=== PATIENT | female | born 1930 | race Caucasian/White ===

== ENCOUNTER 2018-02-08 08:02 | Observation (INO) ==
--- NOTE | 2018-02-08 08:52 | ED ---
HPI General Chief complaint: Nausea/Vomiting/Diarrhea Stated complaint: Possible allergic reaction to medication Time Seen by Provider: 02/08/18 08:38 Source: patient and family Mode of arrival: ambulatory Limitations: no limitations History of Present Illness HPI narrative: 87 y/o female presents with nausea and persistent cough after starting Levaquin. She was placed on this after seeing a primary physician and having rattling in her chest. The patient feels like the nausea and dry heaves or an allergic reaction. She denies any fever or other concurrent complaints. She states her only symptoms were a cough for 2 weeks when she was given the Levaquin. She was given an inhaler but she does not want to use that. She is currently with her daughter who just started taking care of her as her 3 other daughters alternate taking care of her. complaint: nausea Onset (ago): week(s) Location: chest Radiation: non-radiation Severity: mild Pain Consistency: intermittent Relieving factors: none Associated symptoms: denies other symptoms Related Data Home Medications Medication Instructions Recorded Confirmed allopurinol 100 mg PO DAILY 02/08/18 02/08/18 aspirin [Aspir-81] 81 mg PO DAILY 02/08/18 02/08/18 carvedilol 6.25 mg PO BID 02/08/18 02/08/18 furosemide 40 mg PO DAILY 02/08/18 02/08/18 gabapentin 300 mg PO TID 02/08/18 02/08/18 meclizine 25 mg PO DAILY PRN 02/08/18 02/08/18 omeprazole 20 mg PO DAILY 02/08/18 02/08/18 quinapril [Accupril] 5 mg PO DAILY 02/08/18 02/08/18 Allergies Allergy/AdvReac Type Severity Reaction Status Date / Time azithromycin Allergy Vomiting Verified 02/08/18 08:39 prednisone Allergy Anxiety Verified 02/08/18 08:39 Sulfa (Sulfonamide Allergy Vomiting Verified 02/08/18 08:39 Antibiotics) Review of Systems ROS: all other systems reviewed are negative [facility] [place] Medical History Medical History CHF (congestive heart failure) (Acute) FH: cholecystectomy (Acute) GERD (gastroesophageal reflux disease) (Acute) Gout (Acute) Vertigo (Acute) Surgical History Surgical History Hx of CABG (Acute) Social History Social History Substance History: No History of Abuse Second Hand Smoke Exposure: No Smoking Status: Former smoker How Often Do You Have a Drink Containing Alcohol: Monthly or less Recent Travel in [facility] within the Last 8 Weeks: No Recent Out of Country Travel within the Last 8 Weeks: No Immunization History Tetanus Immunization: <5 Years Hx Influenza Vaccine This Season: Yes Exam Narrative Exam Narrative: GENERAL: 87 y/o female in no apparent distress SKIN: Focused skin assessment warm/dry. HEAD: Atraumatic. Normocephalic. EYES: Pupils equal and round. No scleral icterus. No injection or drainage. ENT: No nasal bleeding or discharge. Mucous membranes pink and moist. NECK: Trachea midline. No JVD. CARDIOVASCULAR: Regular rate and rhythm. RESPIRATORY: No accessory muscle use. Clear to auscultation. Breath sounds equal bilaterally. GASTROINTESTINAL: Abdomen soft, non-tender, nondistended. MUSCULOSKELETAL: No obvious deformities. No clubbing. No cyanosis. NEUROLOGICAL: Awake. Motor grossly within normal limits. Normal speech. Course Reevaluation(s) Reevaluation #1: patient updated and agrees to admit, given lasix Initial Documented Vital Signs Temperature 98.4 F 02/08/18 08:14 Pulse Rate 96 H 02/08/18 08:14 Respiratory Rate 16 02/08/18 08:14 Blood Pressure 160/95 H 02/08/18 08:14 Pulse Oximetry 94 L 02/08/18 08:14 Last Documented Vital Signs Temperature 98.4 F 02/08/18 08:14 Pulse Rate 96 H 02/08/18 08:14 Respiratory Rate 16 02/08/18 08:14 Blood Pressure 160/95 H 02/08/18 08:14 Pulse Oximetry 96 02/08/18 08:43 Medical Decision Making MDM Narrative Medical decision making narrative: Patient with 2 week history of cough placed on Levaquin now with nausea. Patient with extensive cardiac history. Will check labs, imaging and reevaluate Medical Screen Exam Complete: Yes Emergency Medical Condition: Yes Differential Diagnosis Differential Diagnosis: pneumonia, chf, acute renal failure, electrolyte... Lab Data Lab results reviewed: Yes I reviewed the patient's lab results. Result diagrams: 02/08/18 08:44 02/08/18 08:44 Lab Results 02/08/18 02/08/18 02/08/18 Range/Units 08:31 08:44 08:44 WBC 7.0 (4.0-11.0) th/mm3 RBC 4.31 (4.00-5.30) mil/mm3 Hgb 13.9 (11.6-15.3) gm/dL Hct 41.9 (35.0-46.0) % MCV 97.1 (80.0-100.0) fL MCH 32.2 (27.0-34.0) pg MCHC 33.2 (32.0-36.0) % RDW 14.7 (11.6-17.2) % Plt Count 253 (150-450) th/mm3 MPV 8.1 (7.0-11.0) fL Neut % (Auto) 72.4 H (16.0-70.0) % Lymph % (Auto) 22.7 (9.0-44.0) % [place] % (Auto) 3.9 (0.0-8.0) % Eos % (Auto) 0.5 (0.0-4.0) % Baso % (Auto) 0.5 (0.0-2.0) % Neut # (Auto) 5.1 (1.8-7.7) th/mm3 Lymph # (Auto) 1.6 (1.0-4.8) th/mm3 [place] # (Auto) 0.3 (0.0-0.9) th/mm3 Eos # (Auto) 0.0 (0.0-0.4) th/mm3 Baso # (Auto) 0.0 (0.0-0.2) th/mm3 WBC Differential . Differential Comment Auto diff final PT 12.0 H (9.8-11.6) sec INR 1.2 Ratio APTT 24.2 L (24.3-30.1) sec Sodium (136-145) meq/L Potassium (3.5-5.1) meq/L Chloride (98-107) meq/L Carbon Dioxide (21.0-32.0) meq/L Anion Gap (5-15) meq/L BUN (7-18) mg/dL Creatinine (0.50-1.00) mg/dL Estimated GFR (>89) mL/min Random Glucose (74-106) mg/dL Lactic Acid 2.5 H (0.4-2.0) mmol/L Calcium (8.5-10.1) mg/dL Magnesium (1.5-2.5) mg/dL Total Bilirubin (0.2-1.0) mg/dL AST (15-37) U/L ALT (10-53) U/L Alkaline Phosphatase (45-117) U/L Total Creatine Kinase (26-192) U/L Troponin I (0.02-0.05) ng/mL B-Natriuretic Peptide (0-100) pg/mL Total Protein (6.4-8.2) g/dL Albumin (3.4-5.0) g/dL 02/08/18 02/08/18 Range/Units 08:44 08:44 WBC (4.0-11.0) th/mm3 RBC (4.00-5.30) mil/mm3 Hgb (11.6-15.3) gm/dL Hct (35.0-46.0) % MCV (80.0-100.0) fL MCH (27.0-34.0) pg MCHC (32.0-36.0) % RDW (11.6-17.2) % Plt Count (150-450) th/mm3 MPV (7.0-11.0) fL Neut % (Auto) (16.0-70.0) % Lymph % (Auto) (9.0-44.0) % [place] % (Auto) (0.0-8.0) % Eos % (Auto) (0.0-4.0) % Baso % (Auto) (0.0-2.0) % Neut # (Auto) (1.8-7.7) th/mm3 Lymph # (Auto) (1.0-4.8) th/mm3 [place] # (Auto) (0.0-0.9) th/mm3 Eos # (Auto) (0.0-0.4) th/mm3 Baso # (Auto) (0.0-0.2) th/mm3 WBC Differential Differential Comment PT (9.8-11.6) sec INR Ratio APTT (24.3-30.1) sec Sodium 134 L (136-145) meq/L Potassium 4.7 (3.5-5.1) meq/L Chloride 101 (98-107) meq/L Carbon Dioxide 21.4 (21.0-32.0) meq/L Anion Gap 12 (5-15) meq/L BUN 13 (7-18) mg/dL Creatinine 1.18 H (0.50-1.00) mg/dL Estimated GFR 43 L (>89) mL/min Random Glucose 169 H (74-106) mg/dL Lactic Acid (0.4-2.0) mmol/L Calcium 9.3 (8.5-10.1) mg/dL Magnesium 2.0 (1.5-2.5) mg/dL Total Bilirubin 0.8 (0.2-1.0) mg/dL AST 28 (15-37) U/L ALT 23 (10-53) U/L Alkaline Phosphatase 84 (45-117) U/L Total Creatine Kinase 58 (26-192) U/L Troponin I Less than 0.02 L (0.02-0.05) ng/mL B-Natriuretic Peptide 1136 H (0-100) pg/mL Total Protein 7.8 (6.4-8.2) g/dL Albumin 4.0 (3.4-5.0) g/dL Imaging Data Attestation: I personally reviewed and interpreted this imaging study as follows : Radiologist's impression: Chest X-Ray 02/08/18 08:42 CONCLUSION: Cardiomegaly and findings of congestive heart failure. Discharge Plan Discharge Disposition Patient Disposition: 30 Still Patient Discharge Condition Condition: Stable Discharge Details Diagnosis: Acute exacerbation of CHF (congestive heart failure) Physicians Team ED Provider: Adelia Sharp Rxs /Orders / Referrals /Forms Prescriptions: No Action furosemide 40 mg Tablet 40 mg PO DAILY RF: 0 carvedilol 6.25 mg Tablet 6.25 mg PO BID RF: 0 allopurinol 100 mg Tablet 100 mg PO DAILY RF: 0 aspirin [Aspir-81] 81 mg Tablet,Delayed Release (Dr/Ec) 81 mg PO DAILY RF: 0 meclizine 25 mg Tablet 25 mg PO DAILY PRN (Reason: Dizziness) RF: 0 quinapril [Accupril] 5 mg Tablet 5 mg PO DAILY RF: 0 gabapentin 300 mg Capsule 300 mg PO TID RF: 0 omeprazole 20 mg Capsule,Delayed Release(Dr/Ec) 20 mg PO DAILY RF: 0 Status ED Status: Admitted Observation Patient
[2018-02-08 09:04] LABS: Baso % (Auto) 0.5 % (0.0-2.0); Eos % (Auto) 0.5 % (0.0-4.0); Hematocrit 41.9 % (35.0-46.0); Hemoglobin 13.9 gm/dL (11.6-15.3); Lymph # (Auto) 1.6 th/mm3 (1.0-4.8); Lymph % (Auto) 22.7 % (9.0-44.0); Mean Corpuscular HGB Conc 33.2 % (32.0-36.0); Mean Corpuscular Hemoglobin 32.2 pg (27.0-34.0); Mean Corpuscular Volume 97.1 fL (80.0-100.0); Mean Platelet Volume 8.1 fL (7.0-11.0); Mono # (Auto) 0.3 th/mm3 (0.0-0.9); Mono % (Auto) 3.9 % (0.0-8.0); Neut # (Auto) 5.1 th/mm3 (1.8-7.7); Neut % (Auto) 72.4 % (16.0-70.0); Platelet Count 253 th/mm3 (150-450); Red Blood Count 4.31 mil/mm3 (4.00-5.30); Red Cell Distribution Width 14.7 % (11.6-17.2)
[2018-02-08 09:11] LABS: Activated Partial Thrombo Time 24.2 sec (24.3-30.1); INR 1.2 Ratio
[2018-02-08 09:23] LABS: Anion Gap 12 meq/L (5-15); Aspartate Aminotransferase 28 U/L (15-37); Blood Urea Nitrogen 13 mg/dL (7-18); Calcium 9.3 mg/dL (8.5-10.1); Carbon Dioxide 21.4 meq/L (21.0-32.0); Chloride 101 meq/L (98-107); Glomerular Filtration Rate 43 mL/min (>89); Glucose,Random 169 mg/dL (74-106); Potassium 4.7 meq/L (3.5-5.1); Sodium 134 meq/L (136-145)
[2018-02-08 09:24] LABS: Alanine Aminotransferase 23 U/L (10-53)
--- NOTE | 2018-02-08 09:27 | XR ---
EXAM DATE: 02/08/2018 9:09 AM EDT AGE/SEX: 87 years / Female INDICATIONS: Nausea, vomiting, weakness. CLINICAL DATA: This is the patient's initial encounter. Patient reports that signs and symptoms have been present for 1 day and indicates a pain score of 3/10. MEDICAL/SURGICAL HISTORY: Cardiovascular disease. CABG. COMPARISON: No prior exams available for comparison. FINDINGS: The cardiac silhouette is enlarged in transverse diameter. Median sternotomy wires are present. There is prominence of the aortic knob is with calcification characteristic of atherosclerotic vascular di sease. There are findings of congestive heart failure with interstitial and alveolar opacity bilatera lly. CONCLUSION: Cardiomegaly and findings of congestive heart failure. Electronically signed by: Stone Rucker MD 02/08/2018 9:26 AM EDT
[2018-02-08 09:28] LABS: Alkaline Phosphatase 84 U/L (45-117); Total Protein 7.8 g/dL (6.4-8.2)
[2018-02-08 09:47] LABS: Creatine Kinase 58 U/L (26-192)
[2018-02-08] MEDS ORDERED: Acetaminophen 325 MG Tablet PO PRN (10:25)
[2018-02-08] MEDS ORDERED: Carvedilol 6.25 MG Tablet PO ONE (10:51)
--- NOTE | 2018-02-08 11:09 | P.HP ---
History of Present Illness Primary Care Physician: Gretta Hernandez History of Present Illness: 7-year-old female with a history of CHF and atrial fibrillation who presents with CHF exacerbation. Approximately 3 weeks ago she had some work done at her house which resulted in andres air, this led to a reactive cough that persisted. When she went to urgent care she was diagnosed with viral upper respiratory infection and given instructions to treat symptomatically. This persisted and she followed up with her primary care physician approximately 4 days ago and was started on Levaquin po due to crackles in bases. She had onset of nausea began yesterday and persisting until today. She came to the ER due to nausea and vomiting but was found to have signs of CHF exacerbation on chest x-ray as well as elevated BNP. Her white blood cell count is normal her temperature is normal, no evidence of pneumonia on chest x-ray. She has a history of atrial fibrillation, but denies any chest pain or change in her heart rhythm impaired to her baseline. She has a history of shingles and postherpetic neuralgia, takes gabapentin, no new rashes, no wounds. Review of Systems All other systems reviewed negative except as stated in HPI PMFSH - History History Provided By: Patient - Medical History Medical History: Medical History (Last Updated 02/08/18 @ 10:44 by Mckenzie Irwin) Afib CHF (congestive heart failure) COPD (chronic obstructive pulmonary disease) FH: cholecystectomy GERD (gastroesophageal reflux disease) Gout Vertigo - Surgical History Surgical History: Surgical History (Last Reviewed 02/08/18 @ 08:54 by Adelia Sharp MD) Hx of CABG - Family History Family History: Family History (Last Updated 02/08/18 @ 11:04 by Jamal Fuchs MD) Other Hypertension - Tobacco History Second Hand Smoke Exposure: No Tobacco Use In Past 30 Days: No Smoking Status: Former smoker - Alcohol History How Often Do You Have a Drink Containing Alcohol: Monthly or less - Substance Use History Substance History: No History of Abuse - Travel History Recent Travel in the [place] Within the Last 8 Weeks: No Recent Travel Out of the Country Within the Last 8 Weeks: No - Immunization History Tetanus Immunization: <5 Years Hx Influenza Vaccine This Season: Yes Medications and Allergies Active Medications: Active Medications Acetaminophen (Tylenol) 650 mg PO Q4H PRN PRN Reason: Temp > 100.4 Al Hydroxide/Mg Hydroxide (Milk Of Magnesia Liq) 30 ml PO Q12H PRN PRN Reason: Mild Constipation Aspirin (Ecotrin) 81 mg PO DAILY [facility] Carvedilol (Coreg) 6.25 mg PO BID [facility] Enoxaparin Sodium (Lovenox Inj) 40 mg SQ Q24H [facility] Furosemide (Lasix Inj) 40 mg IV.PUSH BID@0900,1800 [facility] Gabapentin (Neurontin) 300 mg PO TID [facility] Meclizine HCl (Antivert) 25 mg PO DAILY PRN PRN Reason: Dizziness Non-Formulary Medication (Quinapril [Accupril]) 5 mg PO DAILY [facility] Ondansetron HCl (Zofran Inj) 4 mg IV.PUSH Q6H PRN PRN Reason: NAUSEA OR VOMITING Pantoprazole Sodium (Protonix) 20 mg PO DAILY [facility] Allergies Allergy/AdvReac Type Severity Reaction Status Date / Time azithromycin Allergy Vomiting Verified 02/08/18 08:39 prednisone Allergy Anxiety Verified 02/08/18 08:39 Sulfa (Sulfonamide Allergy Vomiting Verified 02/08/18 08:39 Antibiotics) Home Medications Medication Instructions Recorded Confirmed Type allopurinol 100 mg PO DAILY 02/08/18 02/08/18 History aspirin [Aspir-81] 81 mg PO DAILY 02/08/18 02/08/18 History carvedilol 6.25 mg PO BID 02/08/18 02/08/18 History furosemide 40 mg PO DAILY 02/08/18 02/08/18 History gabapentin 300 mg PO TID 02/08/18 02/08/18 History meclizine 25 mg PO DAILY PRN 02/08/18 02/08/18 History omeprazole 20 mg PO DAILY 02/08/18 02/08/18 History quinapril [Accupril] 5 mg PO DAILY 02/08/18 02/08/18 History Exam Vital signs: Vital Signs 02/08/18 08:14 02/08/18 08:43 02/08/18 10:28 Temperature 98.4 F Pulse Rate 96 H 76 Respiratory Rate 16 22 Blood Pressure 160/95 H 180/104 H Pulse Oximetry 94 L 96 95 Intake & Output 02/07/18 02/08/18 02/08/18 18:59 06:59 18:59 Weight 54.431 kg Narrative: GENERAL: AAOx3, no acute distress, adequate nutrition SKIN: Warm and dry, no rashes. HEAD: Atraumatic. Normocephalic. EYES: Pupils equal, round, reactive to light. No scleral icterus. No injection or drainage. ENT: No nasal bleeding or discharge. Moist mucous membranes. Nonerythematous oropharynx. NECK: Trachea midline. No JVD. Thyroid size within normal limits. CARDIOVASCULAR: Irregularly irregular, rate in the 100 range, 1/6 systolic ejection murmur RESPIRATORY: Diminished bases bilaterally, crackles and atelectatic sounds in bases, no wheezing. No accessory muscle use. GASTROINTESTINAL: Abdomen soft, non-tender, nondistended, normal active bowel sounds. Hepatic and splenic margins not palpable. MUSCULOSKELETAL: Extremities without clubbing or cyanosis. No obvious deformities. Trace edema in right lower extremity to ankle, no edema in left lower extremity NEUROLOGICAL: Awake and alert. No obvious cranial nerve deficits. Motor grossly within normal limits. No focal deficits. Five out of 5 muscle strength in the arms and legs. Normal speech. PSYCHIATRIC: Appropriate mood and affect; insight and judgment normal. Results - Labs CBC & Chem 7: 02/08/18 08:44 02/08/18 08:44 Labs: Laboratory Results - last 24 hr 02/08/18 02/08/18 02/08/18 08:31 08:44 08:44 WBC 7.0 RBC 4.31 Hgb 13.9 Hct 41.9 MCV 97.1 MCH 32.2 MCHC 33.2 RDW 14.7 Plt Count 253 MPV 8.1 Neut % (Auto) 72.4 H Lymph % (Auto) 22.7 [place] % (Auto) 3.9 Eos % (Auto) 0.5 Baso % (Auto) 0.5 Neut # (Auto) 5.1 Lymph # (Auto) 1.6 [place] # (Auto) 0.3 Eos # (Auto) 0.0 Baso # (Auto) 0.0 WBC Differential . Differential Comment Auto diff final PT 12.0 H INR 1.2 APTT 24.2 L Sodium Potassium Chloride Carbon Dioxide Anion Gap BUN Creatinine Estimated GFR Random Glucose Lactic Acid 2.5 H Calcium Magnesium Total Bilirubin AST ALT Alkaline Phosphatase Total Creatine Kinase Troponin I B-Natriuretic Peptide Total Protein Albumin 02/08/18 02/08/18 08:44 08:44 WBC RBC Hgb Hct MCV MCH MCHC RDW Plt Count MPV Neut % (Auto) Lymph % (Auto) [place] % (Auto) Eos % (Auto) Baso % (Auto) Neut # (Auto) Lymph # (Auto) [place] # (Auto) Eos # (Auto) Baso # (Auto) WBC Differential Differential Comment PT INR APTT Sodium 134 L Potassium 4.7 Chloride 101 Carbon Dioxide 21.4 Anion Gap 12 BUN 13 Creatinine 1.18 H Estimated GFR 43 L Random Glucose 169 H Lactic Acid Calcium 9.3 Magnesium 2.0 Total Bilirubin 0.8 AST 28 ALT 23 Alkaline Phosphatase 84 Total Creatine Kinase 58 Troponin I Less than 0.02 L B-Natriuretic Peptide 1136 H Total Protein 7.8 Albumin 4.0 - Imaging Impressions Chest X-Ray 02/08/18 08:42 CONCLUSION: Cardiomegaly and findings of congestive heart failure. Caprini VTE Risk Assessment Caprini VTE Risk Assessment: Moderate/High Risk (score >= 2) Caprini Risk Assessment Model: Point Value = 1 Point Value = 2 Point Value = 3 Point Value = 5 Age 41-60 Minor surgery BMI > 25 kg/m2 Swollen legs Varicose veins or History of unexplained or recurrent spontaneous Oral contraceptives or hormone replacement Sepsis (< 1 month) Serious lung disease, including pneumonia (< 1 month) Abnormal pulmonary function Acute myocardial infarction Congestive heart failure (< 1 month) History of inflammatory bowel disease Medical patient at bed rest Age 61-74 Arthroscopic surgery Major open surgery (> 45 min) Laparoscopic surgery (> 45 min) Malignancy Confined to bed (> 72 hours) Immobilizing plaster cast Central venous access Age >= 75 History of VTE Family history of VTE Factor V Leiden Prothrombin [id number] Lupus anticoagulant Anticardiolipin antibodies Elevated serum homocysteine Heparin-induced thrombocytopenia Other congenital or acquired thrombophilia Stroke (< 1 month) Elective arthroplasty Hip, pelvis, or leg fracture Acute spinal cord injury (< 1 month) Prophylaxis Regimen: Total Risk Factor Score Risk Level Prophylaxis Regimen 0-1 Low Early ambulation 2 Moderate Order ONE of the following: *Sequential Compression Device (SCD) *Heparin 5000 units SQ BID 3-4 Higher Order ONE of the following medications: *Heparin 5000 units SQ TID *Enoxaparin/Lovenox 40 mg SQ daily (WT < 150 kg, CrCl > 30 mL/min) *Enoxaparin/Lovenox 30 mg SQ daily (WT < 150 kg, CrCl > 10-29 mL/min) *Enoxaparin/Lovenox 30 mg SQ BID (WT < 150 kg, CrCl > 30 mL/min) AND/OR *Sequential Compression Device (SCD) 5 or more Highest Order ONE of the following medications: *Heparin 5000 units SQ TID (Preferred with Epidurals) *Enoxaparin/Lovenox 40 mg SQ daily (WT < 150 kg, CrCl > 30 mL/min) *Enoxaparin/Lovenox 30 mg SQ daily (WT < 150 kg, CrCl > 10-29 mL/min) *Enoxaparin/Lovenox 30 mg SQ BID (WT < 150 kg, CrCl > 30 mL/min) AND *Sequential Compression Device (SCD) Assessment and Plan - Plan CHF exacerbation, atrial fibrillation Patient has a known history of A. fib and CHF for which she takes Coreg, aspirin , Lasix Hold p.o. Lasix and replace with 40 mg IV Lasix twice daily Follow a.m. 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
[2018-02-08 11:10] LABS: Bilirubin,Urine Negative (Negative); Clarity,Urine Clear (Clear); Color,Urine Yellow (Yellw/Straw); Glucose,Urine (UA) Negative (Negative); Hyaline Casts,Urine 15 /lpf (0-3); Leukocyte Esterase,Urine Negative (Negative); Nitrite,Urine Negative (Negative); Specific Gravity,Urine 1.008 (1.002-1.035); Squamous Epithelial Cell,Urine 3 /hpf (0-5)
[2018-02-08] MEDS ORDERED: Enoxaparin Inj 40 MG/0.4 ML Syringe SQ SCH (12:00)
[2018-02-08] MEDS: Gabapentin 300 MG Capsule PO SCH ×2 (13:00→20:14)
[2018-02-08] MEDS: Carvedilol 6.25 MG Tablet PO SCH (20:14)
--- NOTE | 2018-02-09 06:32 | P.CONCA ---
History of Present Illness Service: Cardiology Consult date: 02/08/18 Primary Care Provider: Gretta Hernandez Chief Complaint: SOB History of Present Illness: This is a very pleasant 87 year old female with a past medical history of CAD s/ p CABG, hx of CHF, chronic afib not currently on anticoagulation who originally presented with complaints of cough and shortness of breath 4 days ago to her PCP. She was placed on Levaquin but experienced worsening nausea and vomiting. 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 Her past medical history currently not available for review. She take Lasix 40mg po qday at home and has been compliant with her medications. She reports that her shortness of breath and LE edema progressively worsened over the past few days. She currently denies CP/PND/ orthopnea/syncope/presyncope. She has had a robust output to Lasix 40mg IV. Review of Systems All other systems reviewed negative except as stated in HPI PMFSH - History History Provided By: Patient, Family Member - Medical History Medical History: Medical History (Last Updated 02/08/18 @ 10:44 by Mckenzie Irwin) Afib CHF (congestive heart failure) COPD (chronic obstructive pulmonary disease) FH: cholecystectomy GERD (gastroesophageal reflux disease) Gout Vertigo - Surgical History Surgical History: Surgical History (Last Reviewed 02/08/18 @ 08:54 by Adelia Sharp MD) Hx of CABG - Family History Family History: Family History (Last Updated 02/08/18 @ 11:04 by Jamal Fuchs MD) Other Hypertension - Tobacco History Second Hand Smoke Exposure: No Tobacco Use In Past 30 Days: No Smoking Status: Former smoker - Alcohol History How Often Do You Have a Drink Containing Alcohol: Never - Substance Use History Substance History: No History of Abuse - Travel History Recent Travel in the [place] Within the Last 8 Weeks: No Recent Travel Out of the Country Within the Last 8 Weeks: No - Immunization History Tetanus Immunization: <5 Years Hx Influenza Vaccine This Season: Yes Medications and Allergies Active Medications: Active Medications Acetaminophen (Tylenol) 650 mg PO Q4H PRN PRN Reason: Temp > 100.4 Al Hydroxide/Mg Hydroxide (Milk Of [place] Liq) 30 ml PO Q12H PRN PRN Reason: Mild Constipation Aspirin (Ecotrin) 81 mg PO DAILY [facility]BER Carvedilol (Coreg) 6.25 mg PO BID EBER Last Admin: 02/08/18 20:14 Dose: 6.25 mg Enoxaparin Sodium (Lovenox Inj) 40 mg SQ Q24H [facility] Last Admin: 02/08/18 13:04 Dose: Not Given Furosemide (Lasix Inj) 40 mg IV.PUSH BID@0900,1800 [facility] Last Admin: 02/08/18 17:43 Dose: 40 mg Gabapentin (Neurontin) 300 mg PO TID [facility] Last Admin: 02/08/18 20:14 Dose: 300 mg Lisinopril (Prinivil) 5 mg PO DAILY [facility] Meclizine HCl (Antivert) 25 mg PO DAILY PRN PRN Reason: Dizziness Ondansetron HCl (Zofran Inj) 4 mg IV.PUSH Q6H PRN PRN Reason: NAUSEA OR VOMITING Pantoprazole Sodium (Protonix) 20 mg PO DAILY [facility] Allergies Allergy/AdvReac Type Severity Reaction Status Date / Time azithromycin Allergy Vomiting Verified 02/08/18 08:39 prednisone Allergy Anxiety Verified 02/08/18 08:39 Sulfa (Sulfonamide Allergy Vomiting Verified 02/08/18 08:39 Antibiotics) Home Medications Medication Instructions Recorded Confirmed Type allopurinol 100 mg PO DAILY 02/08/18 02/08/18 History aspirin [Aspir-81] 81 mg PO DAILY 02/08/18 02/08/18 History carvedilol 6.25 mg PO DAILY 02/08/18 02/08/18 History furosemide 40 mg PO DAILY 02/08/18 02/08/18 History gabapentin 300 mg PO TID 02/08/18 02/08/18 History meclizine 25 mg PO DAILY PRN 02/08/18 02/08/18 History omeprazole 20 mg PO DAILY 02/08/18 02/08/18 History quinapril [Accupril] 5 mg PO DAILY 02/08/18 02/08/18 History Exam Vital signs: Vital Signs 02/08/18 08:14 02/08/18 08:43 02/08/18 10:28 Temperature 98.4 F Pulse Rate 96 H 76 Respiratory Rate 16 22 Blood Pressure 160/95 H 180/104 H Pulse Oximetry 94 L 96 95 02/08/18 11:15 02/08/18 16:00 02/08/18 20:00 Temperature 98.7 F Pulse Rate 84 105 H Respiratory Rate 16 17 Blood Pressure 169/114 H 127/62 131/80 Pulse Oximetry 94 L 95 02/08/18 23:31 02/09/18 00:00 02/09/18 04:00 Temperature 98.4 F 98.3 F Pulse Rate 96 H 85 69 Respiratory Rate 17 17 Blood Pressure 105/59 L 121/60 Pulse Oximetry 96 95 Intake & Output 02/08/18 02/08/18 02/09/18 06:59 18:59 06:59 Intake Total 240 / 240 Balance 240 / 240 Weight 54.431 kg Intake: Oral 240 / 240 Other: # Voids 2 2 # Bowel Movements 0 Weight On Admission 54.431 kg - Constitutional no acute distress - Routine HEENT Exam Head: Present: normocephalic Eye: Present: EOMI, PERRL ENT: Present: mucous membranes moist - Routine Neck Exam Present: supple. Absent: JVD - Routine Respiratory Exam Present: crackles (bilateral at bases) - Routine Cardiovascular Exam Present: S1, S2, murmur (2/6 CARA at LLSB), irregular rhythm - Routine Abdominal Exam Present: soft, normoactive bowel sounds - Routine Extremities Exam Present: edema (1+ bilaterally) - Routine Neurological Exam Present: alert, oriented X3 - Routine Psychiatric Exam Present: normal affect Results 02/08/18 08:44 02/08/18 08:44 Cardiac Enzymes 02/08/18 02/08/18 Range/Units 08:44 08:44 AST 28 (15-37) U/L Troponin I Less than 0.02 L (0.02-0.05) ng/mL B-Natriuretic Peptide 1136 H (0-100) pg/mL Coagulation 02/08/18 02/08/18 Range/Units 08:44 08:44 PT 12.0 H (9.8-11.6) sec APTT 24.2 L (24.3-30.1) sec B-Natriuretic Peptide 1136 H (0-100) pg/mL CBC 02/08/18 Range/Units 08:44 WBC 7.0 (4.0-11.0) th/mm3 RBC 4.31 (4.00-5.30) mil/mm3 Hgb 13.9 (11.6-15.3) gm/dL Hct 41.9 (35.0-46.0) % Plt Count 253 (150-450) th/mm3 Neut # (Auto) 5.1 (1.8-7.7) th/mm3 Lymph # (Auto) 1.6 (1.0-4.8) th/mm3 [place] # (Auto) 0.3 (0.0-0.9) th/mm3 Eos # (Auto) 0.0 (0.0-0.4) th/mm3 Baso # (Auto) 0.0 (0.0-0.2) th/mm3 Comprehensive Metabolic Panel 02/08/18 Range/Units 08:44 Sodium 134 L (136-145) meq/L Potassium 4.7 (3.5-5.1) meq/L Chloride 101 (98-107) meq/L Carbon Dioxide 21.4 (21.0-32.0) meq/L BUN 13 (7-18) mg/dL Creatinine 1.18 H (0.50-1.00) mg/dL Calcium 9.3 (8.5-10.1) mg/dL AST 28 (15-37) U/L ALT 23 (10-53) U/L Alkaline Phosphatase 84 (45-117) U/L Total Protein 7.8 (6.4-8.2) g/dL Albumin 4.0 (3.4-5.0) g/dL Intake and Output 02/08/18 02/08/18 02/09/18 14:59 22:59 06:59 Intake Total 240 / 240 Balance 240 / 240 Intake: Oral 240 / 240 Other: # Voids 2 2 # Bowel Movements 0 Weight 54.431 kg 54.431 kg Weight On Admission 54.431 kg Patient Weight 02/09/18 06:59 Weight 54.431 kg Assessment and Plan - Plan Acute on Chronic CHF Exacerbation -patient had a good urine output with IV Lasix. Will monitor BMP. Will need to review outside records and establish outpatient follow up. Cont Coreg and Lisinopril Hx of CAD s/p CABG -continue ASA. will need to obtain outside records. Hx of permanent afib (her [id number] score is 5 ) would continue coreg for rate control unclear why patient is not on oral AC. I discussed the stroke risk with the patient. She would like to reconsider as an outpatient. Will likely receive 1 day of IV diuresis and anticipate d/c vinicius to resume home meds and close follow up with me in the clinic in 1-2 weeks. Given her recent testing and that she is doing well already would hold off further testing until information is reviewed.
[2018-02-09 08:07] VITALS: BP 107/76; RESP 16; TEMP 98; O2SAT 94
[2018-02-09] MEDS: Gabapentin 300 MG Capsule PO SCH (08:15)
[2018-02-09] MEDS: Carvedilol 6.25 MG Tablet PO SCH (08:15)
[2018-02-09] MEDS ORDERED: Pantoprazole Sodium 20 MG DR Tablet PO SCH (09:00)
[2018-02-09] MEDS ORDERED: Lisinopril 5 MG Tablet PO SCH (09:00)
--- NOTE | 2018-02-09 09:06 | P.PNCA ---
Subjective Interval history: No acute events overnight. Voiding a lot, shortness of breath improved. Patient wanting to go home. Physical Exam Vital signs: Vital Signs 02/08/18 10:28 02/08/18 11:15 02/08/18 16:00 Temperature 98.7 F Pulse Rate 76 84 Respiratory Rate 22 16 Blood Pressure 180/104 H 169/114 H 127/62 Pulse Oximetry 95 94 L 02/08/18 20:00 02/08/18 23:31 02/09/18 00:00 Temperature 98.4 F Pulse Rate 105 H 96 H 85 Respiratory Rate 17 17 Blood Pressure 131/80 105/59 L Pulse Oximetry 95 96 02/09/18 04:00 02/09/18 08:00 Temperature 98.3 F 98.0 F Pulse Rate 69 72 Respiratory Rate 17 16 Blood Pressure 121/60 107/76 Pulse Oximetry 95 94 L Intake & Output 02/08/18 02/09/18 02/09/18 18:59 06:59 18:59 Intake Total 240 / 240 Balance 240 / 240 Weight 54.431 kg 53.4 kg Intake: Oral 240 / 240 Other: # Voids 2 2 # Bowel Movements 0 Weight On Admission 54.431 kg - Constitutional no acute distress - Routine HEENT Exam Eye: Present: EOMI, PERRL - Routine Neck Exam Absent: JVD - Routine Respiratory Exam Present: CTA bilaterally - Routine Cardiovascular Exam Present: S1, S2, murmur (2/6 CARA RLSB), irregular rhythm - Routine Abdominal Exam Present: soft, normoactive bowel sounds - Routine Extremities Exam Present: edema (1+ edema) Assessment and Plan - Plan Acute on Chronic CHF Exacerbation -patient had a good urine output with IV Lasix. Will repeat another dose of IV diuretics. Will follow up BMP, if stable patient can be discharged on home meds of Lasix 40mg po qday, Coreg 6.25mg po BID, and Lisinopril 5mg po qday. Will need to review outside records and establish outpatient follow up. Hx of CAD s/p CABG -continue ASA. will need to obtain outside records. Hx of permanent afib (her [id number] score is 5 ) would continue coreg for rate control unclear why patient is not on oral AC. I discussed the stroke risk with the patient. She would like to reconsider as an outpatient. Likely d/c later today with close follow up. Patient should contact us if she has worsening shortness of breath or decline in urine output with po Lasix.
[2018-02-09 09:07] VITALS: PULSE 85
--- NOTE | 2018-02-09 09:19 | P.PN ---
Subjective Interval history: Follow-up for CHF exacerbation. Patient reports feeling much better today. She denies any chest pain or shortness of breath. She states her lower extremity swelling has significantly improved. She denies any orthopnea. She is ambulating to the restroom without difficulty. She feels ready to go home. She plans to follow-up with senior accountant Dr. Sanders after discharge. Again discussed recommendation for anticoagulation for her atrial fibrillation, however she prefers to discuss this further as outpatient. She has no other medical complaints at this time. Physical Exam Vital signs: Vital Signs 02/08/18 10:28 02/08/18 11:15 02/08/18 16:00 Temperature 98.7 F Pulse Rate 76 84 Respiratory Rate 22 16 Blood Pressure 180/104 H 169/114 H 127/62 Pulse Oximetry 95 94 L 02/08/18 20:00 02/08/18 23:31 02/09/18 00:00 Temperature 98.4 F Pulse Rate 105 H 96 H 85 Respiratory Rate 17 17 Blood Pressure 131/80 105/59 L Pulse Oximetry 95 96 02/09/18 04:00 02/09/18 08:00 Temperature 98.3 F 98.0 F Pulse Rate 69 85 Respiratory Rate 17 16 Blood Pressure 121/60 107/76 Pulse Oximetry 95 94 L Intake & Output 02/08/18 02/09/18 02/09/18 18:59 06:59 18:59 Intake Total 240 / 240 Balance 240 / 240 Weight 54.431 kg 53.4 kg Intake: Oral 240 / 240 Other: # Voids 2 2 # Bowel Movements 0 Weight On Admission 54.431 kg Narrative: GENERAL: Well-nourished, well-developed pleasant elderly female patient in [facility]. Lying flat in bed. SKIN: Warm and dry. No rash. HEENT: Normocephalic. Atraumatic. Pupils equal and round. Mucous membranes pink and moist. CARDIOVASCULAR: Irregular rate and rhythm. 2/6 systolic murmur noted. RESPIRATORY: No accessory muscle use. Clear to auscultation. Breath sounds equal bilaterally. GASTROINTESTINAL: Abdomen soft, non-tender, nondistended. Normoactive bowel sounds x4. MUSCULOSKELETAL: No obvious deformities. Extremities without clubbing, cyanosis , or edema. NEUROLOGICAL: Awake and alert. No obvious cranial nerve deficits. Motor grossly within normal limits. Moving all extremities spontaneously. Normal speech. PSYCHIATRIC: Appropriate mood and affect; insight and judgment normal. Results - Labs CBC & Chem 7: 02/08/18 08:44 02/08/18 08:44 Laboratory Results - last 24 hr 02/08/18 02/08/18 02/08/18 08:31 08:44 08:44 Sodium 134 L Potassium 4.7 Chloride 101 Carbon Dioxide 21.4 Anion Gap 12 BUN 13 Creatinine 1.18 H Estimated GFR 43 L Random Glucose 169 H Lactic Acid 2.5 H Calcium 9.3 Magnesium 2.0 Total Bilirubin 0.8 AST 28 ALT 23 Alkaline Phosphatase 84 Total Creatine Kinase 58 Troponin I Less than 0.02 L B-Natriuretic Peptide 1136 H Total Protein 7.8 Albumin 4.0 Urine Color Urine Clarity Urine pH Ur Specific [place] Urine Protein Urine Glucose (UA) Urine Ketones Urine Occult Blood Urine Nitrate Urine Bilirubin Urine Urobilinogen Ur Leukocyte Esterase Urine RBC Urine WBC Ur Squamous Epith Cells Hyaline Casts Micro UA Comment Ur Microscopic Review Urine Culture Comments 02/08/18 10:46 Sodium Potassium Chloride Carbon Dioxide Anion Gap BUN Creatinine Estimated GFR Random Glucose Lactic Acid Calcium Magnesium Total Bilirubin AST ALT Alkaline Phosphatase Total Creatine Kinase Troponin I B-Natriuretic Peptide Total Protein Albumin Urine Color Yellow Urine Clarity Clear Urine pH 6.0 Ur Specific [place] 1.008 Urine Protein Negative Urine Glucose (UA) Negative Urine Ketones Trace H Urine Occult Blood Small H Urine Nitrate Negative Urine Bilirubin Negative Urine Urobilinogen Less than 2 Ur Leukocyte Esterase Negative Urine RBC Less than 1 Urine WBC 1 Ur Squamous Epith Cells 3 Hyaline Casts 15 Micro UA Comment Culture not ind Ur Microscopic Review Not Reportable Urine Culture Comments Culture not ind - Imaging Impressions Chest X-Ray 02/08/18 08:42 CONCLUSION: Cardiomegaly and findings of congestive heart failure. Assessment and Plan - Plan 87-year-old female with history of A. fib, CAD, CABG, CHF, COPD, vertigo, presents with a four-day history of cough, shortness of breath, lower extremity swelling. Acute exacerbation of Chronic systolic CHF: Acute, BNP elevated at 1136 -CXR reviewed, shows cardiomegaly and findings of congestive heart failure with interstitial and alveolar opacity bilaterally -Continue diuresis with IV Lasix 40 mg twice a day -Continue home medications including Coreg and lisinopril -Patient much improved, O2 sat stable on room air -Consult cardiology, appreciate assistance, cleared for discharge today, recommends outpatient follow-up CAD s/p CABG: chronic, no complaints of chest pain -continue ASA. -monitored on telemetry -outpatient f/up with cardiology Atrial Fibrillation: chronic. [id number] score is 5. -Continue patient's coreg -Would benefit from oral AC, however the patient prefers to reconsider this as outpatient with cardiology All other medical conditions stable, continue home medications as appropriate. DVT Prophylaxis: Lovenox sq Discharge Planning: Discharge patient to home Condition on discharge: Stable Cardiac Diet as tolerated Ad Demetrice activity Rx written: lasix 40mg qd, coreg 6.25mg bid Follow-up with primary care physician and cardiology Dr. Sanders
--- NOTE | 2018-02-09 17:46 | ECG ---
Date Performed: 02/09/2018 Time Performed: 09:16:07 PTAGE: 87 years EKG: ATRIAL FIBRILLATION BORDERLINE RIGHT AXIS DEVIATION LOW QRS VOLTAGE IN PRECORDIAL LEADS NON SPECIFIC T-WAVE ABNORMALITY ABNORMAL ECG NO PREVIOUS TRACING DOCTOR: Sera Devine Interpretating Date/Time 02/09/2018 17:43:33
== END 2018-02-09 12:02 | disposition home or self-care (01) ==
LOC: NEPE 08:02 → NEDA 08:02 → NEPGCP 13:55
PROVIDERS: ADMIT Hospitalist; ATTEND Hospitalist